=== PATIENT | female | born 1950 | race Caucasian/White ===

== ENCOUNTER 2018-04-14 07:43 | Day surgery (SDC) | payer BC ==
--- NOTE | 2018-04-10 09:39 | HP ---
AMENDED REPORT NOW INCLUDES COSIGNER DESIGNATION PREOPERATIVE HISTORY AND PHYSICAL: DATE OF SURGERY/ADMISSION: 04/14/18 DATE OF OFFICE VISIT/ENCOUNTER: 04/06/18 ATTENDING SURGEON: Sindhu Jimenez MD* (dictated by GEOVANNA Osman). PROCEDURE: Right wrist carpal tunnel release. CHIEF COMPLAINT: Bilateral hand numbness and tingling, right worst than left. 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 She has had trouble with both of her hands for several years but recently these symptoms had been increasing, especially on her right hand. She complains of numbness, tingling and pain primarily in the median nerve distribution. She recently had a nerve conduction study which showed moderate carpal tunnel syndrome on both sides, slightly worse on the right than the left. She denies numbness in her small finger. She does not recall any injury. She has failed conservative treatment including physical therapy, bracing and exercises as well as cortisone injection. She is interested in pursuing surgical intervention at this time and has consented to proceed with a right wrist carpal tunnel release. PAST MEDICAL HISTORY: 1. Gout. 2. History of DVT after an ankle fracture in 2004. PAST SURGICAL HISTORY: 1. Appendectomy. 2. Lump excision from left leg. CURRENT MEDICATIONS: 1. Allopurinol 300 mg daily. 2. Aspirin 81 mg daily. 3. Atenolol. 4. Biotin. 5. Celebrex 100 mg p.r.n. 6. Losartan potassium/hydrochlorothiazide 50-12.5 mg daily. 7. Magnesium. 8. Pantoprazole sodium 40 mg daily. 9. Potassium chloride ER 10 mEq daily. 10. Vitamin D3 daily. ALLERGIES: PENICILLIN causes hives. FAMILY HISTORY: Rheumatoid arthritis and cancer. SOCIAL HISTORY: The patient is employed as an hot car operator. She works for [employer]. She is a former smoker. She quit smoking 7 years ago. She smoked off and on for several years approximately half pack a day. She denies recreational drug use. She drinks alcohol on rare occasion. REVIEW OF SYSTEMS: Negative for general, cephalic, cardiovascular, respiratory , GI, , other musculoskeletal, integumentary, endocrine, neurologic and hematologic symptoms. Infectious Disease is negative for MRSA, hepatitis C and HIV. PHYSICAL EXAMINATION GENERAL: Well-developed, well-nourished 67-year-old female, in no acute distress. VITAL SIGNS: Height 5 feet 0.5 inch, weight 210 pounds. Blood pressure 130/86 , pulse rate 70. HEENT: Normocephalic, atraumatic. Pupils are equal, round and reactive to light and accommodation. Extraocular movements are intact. Throat is clear. NECK: Supple. No palpable lymph nodes. PULMONARY: Lungs are clear to auscultation bilaterally. No wheezes, rales or rhonchi. ABDOMEN: Positive bowel sounds. Soft, nontender. NEUROLOGICAL: Alert and oriented x3. Cranial nerves II through XII are intact. Sensation is intact to light touch. MUSCULOSKELETAL: On exam of bilateral hands, there is some mild thenar wasting visible. She has good range of motion in her fingers. She can fully flex and extend her fingers. She has a positive median nerve compression test on the right and slight decreased sensation in the tips of her fingers median nerve distribution. DIAGNOSTIC STUDIES: EMG nerve conduction study shows moderate carpal tunnel syndrome bilaterally. IMPRESSION: Bilateral carpal tunnel syndrome. PLAN: The patient is scheduled to undergo a right wrist carpal tunnel release with Dr. Jimenez on 04/14/18. She will return to the office 10 days postop for followup and suture removal. A prescription for tramadol was e-scribed to the patient's pharmacy for postoperative pain management. GEOVANNA OSMAN [id number]/[facility] #: [id number] SUKHJINDER
[~2018-04-14 07:43] MED LIST: Buffered Lidocaine 0.9% SYRIN* 5 ML/SYR SYRINGE INTRADERM ONE
[2018-04-14] MEDS ORDERED: Naloxone* 0.4 MG/ML 1 ML VIAL IV PRN (09:15)
[2018-04-14] MEDS ORDERED: Acetaminophen TAB* 325 MG PO PRN (09:15)
[2018-04-14] MEDS ORDERED: Ondansetron INJ* 2 MG/ML VIAL IV PRN (09:15)
[2018-04-14] MEDS ORDERED: HYDROcodone/ACETAMIN 5-325 MG* 1 TAB PO PRN ×2 (09:15)
[2018-04-14] MEDS ORDERED: Levalbuterol 0.63MG/3ML NEB* UNIT OF USE INH PRN (09:15)
[2018-04-14] MEDS ORDERED: fentaNYL* 50 MCG/ML 2 ML VIAL (100 MCG VIAL) ONE (09:21)
[2018-04-14] MEDS ORDERED: Midazolam* 1 MG/ML 2 ML VIAL (2 MG) ONE (09:21)
[2018-04-14] MEDS ORDERED: Lidocaine 1% INJ* 10 MG/ML 30 ML SDV ONE (09:40)
[2018-04-14] MEDS ORDERED: Famotidine IV* 10 MG/ML 2 ML (20 mg) ONE (09:46)
[2018-04-14] MEDS ORDERED: Dexamethasone IV* 4 MG/ML 1 ML (4 MG) ONE (09:57)
[2018-04-14] MEDS ORDERED: Propofol* 10 MG/ML 20 ML BTL IV PUSH ONE (09:57)
[2018-04-14] MEDS ORDERED: Lidocaine 2% PF * 5 ML VIAL ONE (09:57)
[2018-04-14] MEDS ORDERED: Ketorolac INJ* 30 MG/ML 1 ML VIAL ONE (09:57)
[2018-04-14 10:36] VITALS: BP 106/61
--- NOTE | 2018-04-15 03:22 | OP ---
DATE OF OPERATION: 04/14/18 [facility] DATE OF : 54 SURGEON: Sindhu Jimenez MD PRIVATE SECURITY GUARD: GEOVANNA Osman ANESTHESIA: Local MAC. PRE-OP DIAGNOSIS: Right carpal tunnel syndrome. POST-OP DIAGNOSIS: Right carpal tunnel syndrome. OPERATIVE PROCEDURE: Right carpal tunnel release. ESTIMATED BLOOD LOSS: Zero. TOURNIQUET TIME: Five minutes. INDICATIONS FOR PROCEDURE: Eugenie is a 67-year-old woman with numbness and tingling in the median nerve distribution of her right hand. She presents for right carpal tunnel release. DESCRIPTION OF PROCEDURE: The patient was brought to the operating room, was given a sedation anesthetic and a local infiltration of 10 cc of 1% plain lidocaine in the palm of her right hand. The skin of her right hand and forearm was prepped and draped in the usual sterile fashion. The hand and forearm were exsanguinated and the tourniquet elevated to 250 mmHg. A longitudinal incision was made in the palm in line with the ring finger. We dissected sharply through the subcutaneous tissue down to the transverse carpal ligament. The ligament was divided sharply with a knife and then more proximally with the scissors. The nerve was dissected free from the surrounding tissue and there was an area of moderate compression at the mid portion of the ligament. The wound was irrigated and the skin edges were re- approximated with 4-0 nylon suture. The wound was dressed with Xeroform, 4x4, Webril, and an Gautam wrap. The patient tolerated the procedure well and was brought to the recovery room in good condition. [id number]/[facility] #: [id number] MTDSon
== END 2018-04-14 10:49 | disposition home or self-care (01) ==
LOC: OREAST 07:43
PROVIDERS: ATTEND Orthopaedic Surgery
DX: G56.01 Carpal tunnel syndrome, right upper limb (principal); M10.9 Gout, unspecified; Z86.718 Personal history of other venous thrombosis and embolism; I10 Essential (primary) hypertension; Z87.891 Personal history of nicotine dependence; E04.1 Nontoxic single thyroid nodule
CPT/HCPCS: J1100; J1885; J2250; J2704; J3010